=== PATIENT | male | born 1950 | race African-American/Black ===

== ENCOUNTER 2020-05-24 08:38 | Emergency (ER) | payer MEDICARE, OTHER ==
[~2020-05-24] VITALS: Ht 172.7 cm; Wt 117.0 kg
[2020-05-24] MEDS ORDERED: LIDOCAINE 1%/EPI 1:100,000 20 ML VIAL. INJ ONE (09:00)
--- NOTE | 2020-05-24 10:07 | PHYS DOC ---
Past Medical History Past Medical History: Diabetes-Type II, High Cholesterol, Hypertension Past Surgical History: No Surgical History Smoking Status: Never Smoker Alcohol Use: None General Adult EDM: Chief Complaint: LACERATION/AVULSION HPI: HPI: Patient is a 70 year old male present to ER today for evaluation of laceration on the left side of face, a metal pole fell down and hit him on the left side face below his eyeglasses. Patient denies any loss of consciousness. Patient is up-to-date on his vaccination status. Patient is not on any blood thinner. Patient had no problem seen left eye. Accident happened about 45 minutes ago. Review of Systems: Review of Systems: Constitutional: Denies fever or chills. [] Eyes: Denies change in visual acuity. [] HENT: Denies nasal congestion or sore throat. [] Respiratory: Denies cough or shortness of breath. [] Cardiovascular: Denies chest pain or edema. [] GI: Denies abdominal pain, nausea, vomiting, bloody stools or diarrhea. [] : Denies dysuria. [] Musculoskeletal: Denies back pain or joint pain. [] Integument: Positive for laceration on face Neurologic: Denies headache, focal weakness or sensory changes. [] Endocrine: Denies polyuria or polydipsia. [] Lymphatic: Denies swollen glands. [] Psychiatric: Denies depression or anxiety. [] Heart Score: Risk Factors: Risk Factors: DM, Current or recent (<one month) smoker, HTN, HLP, family history of CAD, obesity. Risk Scores: Score 0 - 3: 2.5% MACE over next 6 weeks - Discharge Home Score 4 - 6: 20.3% MACE over next 6 weeks - Admit for Clinical Observation Score 7 - 10: 72.7% MACE over next 6 weeks - Early Invasive Strategies Current Medications: Current Medications Medications (Trade) Dose Ordered Sig/Gurvinder Start Time Stop Time Status Last Admin Dose Admin Lidocaine/ Epinephrine (LIDOCAINE 1%-EPI 1:100,000 Multi-Dose) 20 ml 1X ONCE 05/24/20 09:00 05/24/20 09:01 DC 05/24/20 09:06 20 ML Allergies: Allergies: Allergies Coded Allergies Type Severity Reaction Last Updated Verified No Known Drug Allergies 05/24/20 No Physical Exam: PE: Constitutional: Well developed, well nourished, no acute distress, non-toxic appearance. [] HENT: Normocephalic, atraumatic, bilateral external ears normal, oropharynx moist, no oral exudates, nose normal. [] Eyes: PERRLA, EOMI, conjunctiva normal, no discharge. [] Neck: Normal range of motion, no tenderness, supple, no stridor. [] Cardiovascular:Heart rate regular rhythm, no murmur [] Lungs & Thorax: Bilateral breath sounds clear to auscultation [] Abdomen: Bowel sounds normal, soft, no tenderness, no masses, no pulsatile masses. [] Skin: Warm, dry, 3 cm laceration on left side face at the corner of left eye brown area laterally. Back: No tenderness, no CVA tenderness. [] Extremities: No tenderness, no cyanosis, no clubbing, ROM intact, no edema. [] Neurologic: Alert and oriented X 3, normal motor function, normal sensory function, no focal deficits noted. [] Psychologic: Affect normal, judgement normal, mood normal. [] Current Patient Data: Vital Signs: Vital Signs Date Time Temp Pulse Resp B/P (MAP) Pulse Ox O2 Delivery O2 Flow Rate FiO2 05/24/20 08:43 98.2 77 16 147/77 (100) 100 98.2 EKG: EKG: [] Radiology/Procedures: Radiology/Procedures: Indication: Laceration of left side face by left eye brown area Procedure: The patient was placed in the appropriate position and anesthesia around the wound, 1% lidocaine with epi was used, 15 ml. The area was then cleaned , The laceration was repaired with 8 sutures, 5-0-nylon. The wound area was then dressed with nonstick gauze. Total repaired wound length: 3 cm Other Items: [OTHER ITEMS] The patient tolerated the procedure well. Complications:none Course & Med Decision Making: Course & Med Decision Making Pertinent Labs and Imaging studies reviewed. (See chart for details) [] Dragon Disclaimer: Dragon Disclaimer: This electronic medical record was generated, in whole or in part, using a voice recognition dictation system. Departure Departure Impression: Primary Impression: Facial laceration Disposition: 01 HOME, SELF-CARE Condition: STABLE Referrals: HARLEEN CORNELIUS MD (PCP) please follow up with your doctor in 7 days for sutures removal Patient Instructions: Facial Laceration Justicifation of Admission Dx: Justifications for Admission: Justification of Admission Dx: N/A HERMILA ARANDA DO May 24, 2020 10:07
[2020-05-24 10:17] VITALS: BP 142/69
== END 2020-05-24 10:17 | disposition home or self-care (01) ==
LOC: ER 08:38
DX: S01.112A Laceration without foreign body of left eyelid and periocular area, initial encounter (principal); E11.9 Type 2 diabetes mellitus without complications; E78.00 Pure hypercholesterolemia, unspecified; I10 Essential (primary) hypertension; W18.09XA Striking against other object with subsequent fall, initial encounter; Y93.89 Activity, other specified; Y92.89 Other specified places as the place of occurrence of the external cause; Y99.8 Other external cause status
CPT/HCPCS: 12013; 99282; J3490